=== PATIENT | male | born 1985 | race Caucasian/White ===

== ENCOUNTER 2024-02-16 13:48 | Emergency (ER) | payer OTHER, SELFPAY ==
[2024-02-16 13:51] VITALS: BP 138/80
--- NOTE | 2024-02-16 14:32 | ED.GENMED ---
History of Present Illness
General
Chief Complaint: Blood and Body Fluid Exposure
Source: patient, spouse and family
Exam Limitations: none
Time Seen by Provider: 02/16/24 14:04
Nursing documentation reviewed up to this point in time: agreed with
History of Present Illness
History of Present Illness:
38-year-old male presenting to the emergency department today with concerns of a cut to his distal finger from a knife that he was using to remove a mass from a mouse trap 2 days ago. He is concern for rabies denies any redness swelling warmth or
additional concerns no numbness or weakness to the cut
Past History
Past History
ED Past Medical History: None
ED Past Surgical History: Other (Saphenous vein stripping right thigh)
Social History
Tobacco: Non-smoker
Drug: None
Personal: Single
Living: with family
Employment: Employed (Online Marketing Director)
Family History
Family History: Other
Review of Systems
Review of Systems
Allergies reviewed?: Yes
All Other Systems: ROS reviewed and negative except as documented in HPI and ROS
Phy Exam
Physical Exam
Physical Exam:
GENERAL: Alert , in no apparent distress
EYE: pupils equal and reactive
NECK: Supple, no significant adenopathy.
ENT: o/p clr, mmm.
CARDIAC: Regular rate and rhythm .
LUNGS: Clear breath sounds bilaterally, no acute respiratory distress, no wheezes/rales/rhonchi
ABDOMEN: Soft, without focal tenderness, no r/g, no cvat
NEUROLOGICAL: Alert and oriented, no focal neuro deficits
SKIN: Small superficial cut to the right ring finger no redness or warmth warm and dry, skin intact.
MUSCULOSKELETAL: No edema, well perfused.
PSYCH: Normal and appropriate interaction.
Course
Orders/Labs/Results
Orders:
Orders
02/16/24 14:30
Rabies Vaccine ([facility])/Pf [Rabavert Rabies Vacc W-Diluent] 2.5 unit IM .ONCE ONE
Vital Signs
Initial and Last Documented VS:
Initial Vital Signs
Temp Pulse Resp BP Pulse Ox
97.5 F 50 16 138/80 96
02/16/24 13:51 02/16/24 13:51 02/16/24 13:51 02/16/24 13:51 02/16/24 13:51
Last Documented Vital Signs
Temp Pulse Resp BP Pulse Ox
97.5 F 50 16 138/80 96
02/16/24 13:51 02/16/24 13:51 02/16/24 13:51 02/16/24 13:51 02/16/24 13:51
MDM/Problems Addressed
MDM/Problems Addressed:
38-year-old male presenting to the emergency department today with concerns of a cut to his finger occurring 2 days ago when removing a mouse from mouse trap. No redness or warmth of the finger no evidence of infection. He is a concern for rabies.
He believes it was explained to him that his risk is extraordinarily low as these types of animals do not tend to carry rabies. He claims that he still would like to get the rabies vaccine he was given a dose here. He did have a full series 8
years ago therefore he will only need 2 doses. Otherwise stable for discharge return precautions given.
*Critical Care Note
Total Time (30-74mins, 75-104mins- exclusive of procedures): Not Applicable
ED Attending Note
-
Portions of this chart may have been created with voice recognition software.� Occasional wrong word or��sound alike� substitutions may have occurred due to the inherent limitations of voice recognition software.
Discharge Plan
Departure
Patient Disposition: Home (Routine Discharge)
Date of Disposition: 02/16/24
Time of Disposition: 14:36
Patient with high blood pressure during this ER visit?: No
Condition: Good
Covid-19: Not Applicable
Discharge Problem:
Other contact with mouse, initial encounter
Instructions: Rabies
Prescriptions:
New
RabAvert (PF) 2.5 unit Suspension For Reconstitution
1 ml IM . DIRECTED Qty: 1 0RF
Rx Instructions:
See Rabies Vaccine Post Exposure Prophylaxis Instruction Sheet for Dosing Instructions
No Action
cyclobenzaprine 10 MG tablet
10 mg PO TIDPRN PRN (Reason: back pain)
escitalopram oxalate 10 MG tablet
10 mg PO DAILY
apixaban [Eliquis] 5 MG tablet
5 mg PO BID
Referrals:
Reymundo Segal MD [Family Provider] -
Stand Alone Forms: Bl/Fluid Consent/Declination, Rabies Vaccine Post Exp Dosing
Activity Restrictions/Additional Instructions:
You came to the emergency department today for rabies vaccine. You are given a dose today you also need a dose in 3 days. Otherwise return for any worsening, new or concerning symptoms.
Interventions
Interventions:
*Risk Screen - Suicide Last Done: 02/16/24 13:51
*General Assessment Last Done: 02/16/24 13:51
*Neglect/Abuse Screening Last Done: 02/16/24 13:51
*ED COVID-19 Vaccine History Last Done: 02/16/24 14:28
ED-Skin Assessment Last Done: 02/16/24 14:28
Discharge Date and Time
Print Language: ITALIAN
[2024-02-16 14:41] VITALS: BMI 28.3
[2024-02-16] MEDS: RABAVERT RABIES VACC W-DILUENT 2.5 UNIT IM (15:12)
== END 2024-02-16 15:43 | disposition home or self-care (01) ==
LOC: EMR 13:48
PROVIDERS: EMERGENCY PHYSICIAN Emergency Medicine; FAMILY PHYSICIAN Internal Medicine
DX: S60.944A Unspecified superficial injury of right ring finger, initial encounter (principal); W53.09XA Other contact with mouse, initial encounter; Z23 Encounter for immunization
CPT/HCPCS: 90471; 99282; 90675

== ENCOUNTER 2024-02-19 14:17 | Outpatient (RCR) | payer OTHER, SELFPAY ==
[2024-02-19 14:42] VITALS: BP 135/77
[2024-02-19] MEDS: RABAVERT RABIES VACC W-DILUENT 2.5 UNIT IM (14:55)
== END 2024-02-22 09:55 | disposition home or self-care (01) ==
LOC: OID 14:17
PROVIDERS: ATTENDING PHYSICIAN Emergency Medicine
DX: Z20.3 Contact with and (suspected) exposure to rabies (principal); Z23 Encounter for immunization
CPT/HCPCS: 90471; 90675

== ENCOUNTER 2025-01-31 16:18 | Emergency (ER) | payer OTHER, SELFPAY ==
[2025-01-31 16:20] VITALS: BP 150/84
[2025-01-31 16:43] LABS: Hematocrit 42.2 % (39.0-52.0); Hemoglobin 14.6 g/dL (13.0-18.0); Mean Corp Hgb Conc. 34.6 g/dL (33.0-37.0); Mean Corpuscular Volume 83.6 fL (80.0-94.0); Nucleated Red Blood Cells % 0 % (-); Platelet Count 313 10^3/uL (130-400); Red Cell Dist. Width 12.4 % (11.5-14.5)
[2025-01-31 17:18] LABS: ALT (SGPT) 23 U/L (0-50); AST (SGOT) 24 U/L (17-59); Albumin 4.9 g/dl (3.5-5.0); Alkaline Phosphatase 66 U/L (38-126); Blood Urea Nitrogen 14 mg/dl (9-20); Calcium 9.7 mg/dl (8.4-10.2); Carbon Dioxide 27 mmol/L (22-30); Chloride 102 mmol/L (98-107); Glucose 95 mg/dl (70-99); Potassium 3.7 mmol/L (3.5-5.1); Sodium 135 mmol/L (135-145); Total Protein 8.1 g/dl (6.3-8.2); eGFR > 60.00
--- NOTE | 2025-01-31 18:27 | ED.GENMED ---
History of Present Illness
General
Chief Complaint: Skin Problem
Source: patient
Exam Limitations: none
Time Seen by Provider: 01/31/25 18:07
Nursing documentation reviewed up to this point in time: agreed with
History of Present Illness
History of Present Illness:
Note:
CHIEF COMPLAINT(S)
Redness and irritation on the leg wound.
HISTORY OF PRESENT ILLNESS
The patient is a 39-year-old male who presented with a problem related to a wound on the leg that started in September. He initially used hydrocolloid dressing, but observed that the wound became red in the shape of the dressing. After switching to gauze
soaks, he later changed to Mepilex Border dressing this week, resulting in increased redness and stinging around the wound site. Prior episodes of vein stripping and chronic venous insufficiency have been noted, leading to expectations of possible
ulceration over time. The patient reports that the redness started worsening this week, and although some areas improved by stopping the hydrocolloid dressings, others remain red, stinging, and itchy. The patient, who works in healthcare, wonders if
there might be a potential infection and is considering the use of antibiotics.
PAST MEDICAL AND SURGICAL HISTORY
The patient has a notable history of chronic venous insufficiency, which has resulted in vein stripping procedures in the past.
SOCIAL HISTORY
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
PHYSICAL EXAM
General: Alert, no acute distress.
Skin: The patient reports irritation and increased redness with itching and stinging in the area of the leg wound. erythema right lower leg, vesicular
Cardiovascular: No mention of peripheral edema, but indicated past procedures related to venous insufficiency.
Neurological: Alert and oriented.
PLAN
Consider starting antibiotics for suspected underlying infection of the wound.
DIFFERENTIAL DIAGNOSIS
The Differential Diagnosis includes, in no particular order and is not limited to:
1. Cellulitis
2. Contact dermatitis
3. Venous stasis dermatitis
4. Superficial thrombophlebitis
5. Deep vein thrombosis
6. Stasis ulcer
7. Lipodermatosclerosis
8. Cutaneous fungal infection
9. Allergic reaction
10. Pyoderma gangrenosum
CARE-UPDATE
01/31/25 - 20:15
The dermatitis has shown no signs of infection. Advised to keep area clean and dry. Rash appears slightly improved since last exam. Reinforced adherence to prescribed treatment plan and follow-up appointments.
Disposition:
SUMMARY OF ENCOUNTER
The patient presented with redness and irritation on a leg wound, which has become more pronounced despite changes in dressing techniques. Concerns of potential infection were raised, considering the patients history of chronic venous insufficiency.
The patient has been diagnosed with stasis dermatitis affecting the right lower leg. The wound is being treated with triamcinolone, compression therapy, and dry dressings. Ongoing follow-up with dermatology and wound care has been recommended.
PLAN
The patient is to continue treatment with triamcinolone, apply compression therapy, and use dry dressings. Follow-up appointments are to be maintained with dermatology and wound care teams to monitor progress.
MEDICATION RECONCILIATION
Triamcinolone prescribed to manage stasis dermatitis on the right lower leg.
MEDICAL DECISION MAKING
- Complexity of Data Reviewed: Chronic conditions affecting care: chronic venous insufficiency.
- Data:
Category 1 - Assessment was made based on physical examination and known medical history.
Category 2 - Clinical decision-making guided by dermatology consultation for ongoing wound care.
- Risk: Prescription medication was prescribed: triamcinolone for stasis dermatitis treatment.
DIAGNOSIS
-Stasis dermatitis
Past History
Past History
ED Past Medical History: None
ED Past Surgical History: Other (Saphenous vein stripping right thigh)
Social History
Tobacco: Non-smoker
Drug: None
Personal: Single
Living: with family
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
Family History
Family History: Other
Phy Exam
Physical Exam
Physical Exam:
.
Course
Orders/Labs/Results
Orders:
Orders
01/31/25 16:34
Complete Blood Count/With Diff Urgent
Comprehensive Metabolic Panel Urgent
Lactic Acid Urgent
01/31/25 18:36
Wound Dressing- Treatment ONCE
Location of Wound: dry dressing non adherent
Triamcinolone Ointment [Triamcinolone Acetonide 0.1% Ointment] See Dose Instructions TOPICAL STAT STA
01/31/25 18:44
Triamcinolone Ointment [Triamcinolone Acetonide 0.1% Ointment] See Dose Instructions TOPICAL STAT STA
Abnormal Lab Results
01/31/25
16:34
Absolute Monos (auto) 0.9 H 10^3/uL
(0.1-0.6)
Monocytes % 11.2 H %
(1.7-9.3)
01/31/25 16:34
01/31/25 16:34
Vital Signs
Initial and Last Documented VS:
Initial Vital Signs
Temp Pulse Resp BP Pulse Ox
97.4 F 48 19 150/84 97
01/31/25 16:20 01/31/25 16:20 01/31/25 16:20 01/31/25 16:20 01/31/25 16:20
Last Documented Vital Signs
Temp Pulse Resp BP Pulse Ox
97.4 F 55 16 148/87 98
01/31/25 16:20 01/31/25 19:01 01/31/25 19:01 01/31/25 19:01 01/31/25 19:01
*Pulse Oximetry
SaO2: 97
Oxygen Mode of Delivery: Room air
Patient hypoxic: no
*Critical Care Note
Total Time (30-74mins, 75-104mins- exclusive of procedures): Not Applicable
ED Attending Note
-
Portions of this chart may have been created with voice recognition software.� Occasional wrong word or��sound alike� substitutions may have occurred due to the inherent limitations of voice recognition software.
Discharge Plan
Departure
Patient Disposition: Home (Routine Discharge)
Date of Disposition: 01/31/25
Time of Disposition: 18:28
Patient with high blood pressure during this ER visit?: Yes
Condition: Good
Discharge Problem:
Acute stasis dermatitis of right lower extremity
Instructions: BLOOD PRESSURE, Stasis Dematitis
Prescriptions:
New
triamcinolone acetonide 0.1 % ointment
1 applic topical BID Qty: 30 0RF
Rx Instructions:
apply to right lower leg
No Action
Eliquis 5 MG tablet
5 mg PO BID
RabAvert (PF) 2.5 unit Suspension For Reconstitution
1 ml IM . DIRECTED Qty: 1 0RF
Rx Instructions:
See Rabies Vaccine Post Exposure Prophylaxis Instruction Sheet for Dosing Instructions
minoxidil 10 mg Tablet
2.5 mg PO BID
Referrals:
Reymundo Segal MD [Family Provider, Internal Medicine]
Gibson Collins MD [Consulting Staff, Dermatology] - Call in 1-3 days for appt
Interventions
Interventions:
*Risk Screen - Suicide Last Done: 01/31/25 16:21
*General Assessment Last Done: 01/31/25 16:21
*Neglect/Abuse Screening Last Done: 01/31/25 16:21
*ED- Fall Risk Assessment Last Done: 01/31/25 19:03
*ED COVID-19 Vaccine History Last Done: 01/31/25 16:21
*ED Influenza Vaccine History Last Done: 01/31/25 16:21
*Nursing Disposition Last Done: 01/31/25 19:03
ED-Skin Assessment Last Done: 01/31/25 18:44
Discharge Date and Time
Discharge Date/Time: 01/31/25 19:12
Print Language: GIBRALTAR[place]
[2025-01-31] MEDS: TRIAMCINOLONE ACETONIDE 0.1% OINTMENT 1 APPLIC TOPICAL (18:56)
[2025-01-31 19:01] VITALS: BP 148/87
== END 2025-01-31 19:12 | disposition home or self-care (01) ==
LOC: EMR 16:18
PROVIDERS: EMERGENCY PHYSICIAN Emergency Medicine; FAMILY PHYSICIAN Internal Medicine
DX: I87.2 Venous insufficiency (chronic) (peripheral) (principal); L97.219 Non-pressure chronic ulcer of right calf with unspecified severity; R03.0 Elevated blood-pressure reading, without diagnosis of hypertension
CPT/HCPCS: 99283; 80053; 83605; 85025

== ENCOUNTER → 2025-02-03 12:32 | Outpatient (REF) | payer OTHER, SELFPAY | LOC: WOUND 12:32 | PROVIDERS: ATTENDING PHYSICIAN Surgery; FAMILY PHYSICIAN Internal Medicine | DX: I87.311 Chronic venous hypertension (idiopathic) with ulcer of right lower extremity (principal); L97.311 Non-pressure chronic ulcer of right ankle limited to breakdown of skin; I87.2 Venous insufficiency (chronic) (peripheral); Z86.718 Personal history of other venous thrombosis and embolism; Z79.01 Long term (current) use of anticoagulants | CPT/HCPCS: 99203 ==

== ENCOUNTER 2025-02-17 14:18 | Outpatient (REF) | payer OTHER, SELFPAY | END 2025-02-17 23:59 | disposition home or self-care (01) | LOC: WOUND 14:18 | PROVIDERS: ATTENDING PHYSICIAN Surgery; FAMILY PHYSICIAN Internal Medicine | DX: I87.311 Chronic venous hypertension (idiopathic) with ulcer of right lower extremity (principal); L97.311 Non-pressure chronic ulcer of right ankle limited to breakdown of skin; Z79.01 Long term (current) use of anticoagulants; Z86.718 Personal history of other venous thrombosis and embolism; I87.2 Venous insufficiency (chronic) (peripheral) | CPT/HCPCS: 99212 ==